=== PATIENT | female | born 1945 | race Caucasian/White ===

== ENCOUNTER 2017-05-22 03:45 | Outpatient (CLI) | payer OTHER ==
[~2017-05-22 03:45] MED LIST: ASPI-611 PO; CARV3.122 PO; INSU100V13 SQ; LANTUS SUBCUT; LEVO25TA7 PO; LOSA1TAB39 PO; METF500T7 PO; [UNRECOGNIZED DRUG - CODE] PO
== END 2017-05-22 23:59 | disposition home or self-care (01) ==
LOC: DIABETIC 03:45
PROVIDERS: ATTEND Nurse Practitioner
DX: E11.65 Type 2 diabetes mellitus with hyperglycemia (principal); I10 Essential (primary) hypertension; Z90.710 Acquired absence of both cervix and uterus
CPT/HCPCS: G0108

== ENCOUNTER 2017-08-21 03:55 | Outpatient (CLI) | payer OTHER | END 2017-08-21 23:59 | disposition home or self-care (01) | LOC: DIABETIC 03:55 | PROVIDERS: ATTEND Nurse Practitioner | DX: E11.65 Type 2 diabetes mellitus with hyperglycemia (principal); I10 Essential (primary) hypertension | CPT/HCPCS: G0108 ==

== ENCOUNTER 2018-03-05 02:09 | Outpatient (CLI) | payer OTHER | END 2018-03-05 23:59 | disposition home or self-care (01) | LOC: DIABETIC 02:09 | PROVIDERS: ATTEND Nurse Practitioner | DX: E11.65 Type 2 diabetes mellitus with hyperglycemia (principal); I10 Essential (primary) hypertension; Z79.82 Long term (current) use of aspirin; Z79.4 Long term (current) use of insulin; Z79.84 Long term (current) use of oral hypoglycemic drugs; Z79.899 Other long term (current) drug therapy; Z90.710 Acquired absence of both cervix and uterus | CPT/HCPCS: G0108 ==

== ENCOUNTER 2018-07-23 00:48 | Outpatient (CLI) | payer OTHER | END 2018-07-23 23:59 | disposition home or self-care (01) | LOC: DIABETIC 00:48 | PROVIDERS: ATTEND Nurse Practitioner | DX: E11.65 Type 2 diabetes mellitus with hyperglycemia (principal); I10 Essential (primary) hypertension; Z79.82 Long term (current) use of aspirin; Z79.4 Long term (current) use of insulin; Z79.84 Long term (current) use of oral hypoglycemic drugs; Z79.899 Other long term (current) drug therapy; Z90.710 Acquired absence of both cervix and uterus | CPT/HCPCS: G0108 ==

== ENCOUNTER 2018-10-29 02:10 | Outpatient (CLI) | payer OTHER | END 2018-10-29 23:59 | disposition home or self-care (01) | LOC: DIABETIC 02:10 | PROVIDERS: ATTEND Nurse Practitioner | DX: E11.9 Type 2 diabetes mellitus without complications (principal); Z71.3 Dietary counseling and surveillance | CPT/HCPCS: G0108 ==

== ENCOUNTER 2018-12-04 15:50 | Inpatient (IN) | payer MEDICARE, OTHER ==
[~2018-12-04] VITALS: Ht 160 cm; Wt 126.0 kg
[~2018-12-04 15:50] MED LIST changes: +METF500T20 PO; -METF500T7 PO
[2018-12-04] MEDS ORDERED: furosemide 10 MG/1 ML 10ml inj IV ONE (16:05)
[2018-12-04] MEDS ORDERED: ipratropium/albuterol 3ml nebule NEB ONE ×2 (16:10→20:00)
[2018-12-04] MEDS: nitroGLYCERIN-Tridil 50MG/D5W 250 ML IV SCH ×3 (16:15→17:00)
--- NOTE | 2018-12-04 16:21 | NUR ---
DANAE Norman at bedside, requests titration of NTG gtt to 75mcg/min
[2018-12-04 16:26] LABS: BASOPHILS # (AUTO) 0.1 X10'3 (0-0.2); BASOPHILS % (AUTO) 0.6 % (0-1); EOSINOPHILS # (AUTO) 0.3 X10'3 (0-0.9); EOSINOPHILS % (AUTO) 1.3 % (0-6); HEMATOCRIT 47.4 % (35.0-45.0); HEMOGLOBIN 15.8 g/dl (12.0-16.0); LYMPHOCYTES # (AUTO) 8.9 X10'3 (1.1-4.8); LYMPHOCYTES % (AUTO) 37.7 % (21-51); MEAN CORPUSCULAR HEMOGLOBIN 32.3 PG (27.0-31.0); MEAN CORPUSCULAR HGB CONC 33.2 g/dL (33.0-36.5); MEAN CORPUSCULAR VOLUME 97.1 FL (78-98); MEAN PLATELET VOLUME 8.5 FL (7.4-10.4); MONOCYTES # (AUTO) 1.8 X10'3 (0-0.9); MONOCYTES % (AUTO) 7.7 % (2-12); NEUTROPHILS # (AUTO) 12.5 X10'3 (1.8-7.7); NEUTROPHILS % (AUTO) 52.7 % (42-75); PLATELET COUNT 362 X10'3 (140-440); RED BLOOD COUNT 4.88 X10'6 (4.20-5.60); RED CELL DISTRIBUTION WIDTH 15.3 % (11.5-14.5); WHITE BLOOD COUNT 23.7 X10'3 (4.5-11.0)
--- NOTE | 2018-12-04 16:29 | NUR ---
DANAE Norman at bedside, requests titration of NTG gtt to 100mcg/min
[2018-12-04 16:31] LABS: ABG BASE EXCESS -4.5 mmol/L (-2.0-3.0); ABG HCO3 25.9 mmol/L (22.0-26.0); ABG OXYGEN SATURATION 99.5 % (95-98); ABG PCO2 (T) 71.4 mmHg (35.0-45.0); ABG PH (T) 7.177 (7.350-7.450); ABG PO2 (T) 466.2 mmHg (83-108); ALLEN'S TEST Positive; FCOHb 0.6 % (0.5-1.5); FMetHb 0.3 % (0.3-1.12); FO2Hb 98.6 % (94-100); MINUTE VOLUME 16 L/min; RESPIRATORY RATE 12 b/min; RESPIRATORY RATE (OBSERVED) 31 b/min; TIDAL VOLUME 480 mL
--- NOTE | 2018-12-04 17:00 | NUR ---
DANAE Norman at bedside, requests titration of NTG gtt to 75mcg/min Addendum: 12/04/18 at 1700 by [email or web address] EDMD Emerson at bedside, requests titration of NTG gtt down to 75mcg/min secondary to BP of 117/68
[2018-12-04] MEDS ORDERED: LEVO25TA7 PO (17:06)
[2018-12-04] MEDS ORDERED: SEMA0.25 SQ (17:09)
[2018-12-04 17:21] LABS: PARTIAL THROMBOPLASTIN TIME 26 SECONDS (22-32)
[2018-12-04 17:33] LABS: ALANINE AMINOTRANSFERASE 43 U/L (12-78); ALBUMIN/GLOBULIN RATIO 0.7 (1.1-1.5); ALKALINE PHOSPHATASE 87 IU/L (46-116); ANION GAP 13 (8-16); ASPARTATE AMINO TRANSFERASE 26 U/L (10-37); BILIRUBIN,TOTAL 0.3 MG/DL (0.1-1.0); BLOOD UREA NITROGEN 22 MG/DL (7-18); BUN/CREATININE RATIO 19.1 (6.6-38.0); CALCIUM 9.4 MG/DL (8.5-10.1); CHLORIDE 103 MMOL/L (99-107); CREATININE 1.15 MG/DL (0.40-0.90); GLUCOSE 256 MG/DL (70-104); POTASSIUM 3.8 MMOL/L (3.5-5.1); SODIUM 140 MMOL/L (135-145); TOTAL CARBON DIOXIDE 24.1 MMOL/L (24-32); TOTAL PROTEIN 7.2 G/DL (6.4-8.2); eGFR 46 ML/MIN
[2018-12-04 17:35] LABS: ABG BASE EXCESS -0.2 mmol/L (-2.0-3.0); ABG HCO3 25.1 mmol/L (22.0-26.0); ABG OXYGEN SATURATION 98.1 % (95-98); ABG PCO2 (T) 43.4 mmHg (35.0-45.0); ABG PO2 (T) 128.1 mmHg (83-108); ALLEN'S TEST Positive; FCOHb 0.5 % (0.5-1.5); FMetHb 0.2 % (0.3-1.12); FO2Hb 97.4 % (94-100); RESPIRATORY RATE 12 b/min; TOTAL HEMOGLOBIN 14.5 G/dl (12.0-16.0)
[2018-12-04] MEDS ORDERED: CefTRIAXone/D5W-Rocephin 1gm 50 ML IV ONE (17:45)
[2018-12-04] MEDS ORDERED: azithromycin/NS 500mg/250ml 250 ML IV ONE (17:45)
--- NOTE | 2018-12-04 17:58 | NUR ---
DR SIERRA INTO SEE PT AND REQUESTED NTG GTT BE DECREASED TO 25MCG. GTT DECREASED. HR 77 RR18 O2 07 BP 121/65 PT STATES BREATHING IMPROVED
[2018-12-04] MEDS ORDERED: iohexol 350MG/ML 100ml bottle IV ONE (19:28)
--- NOTE | 2018-12-04 19:34 | NUR ---
DOCTOR SIERRA REQUESTED THAT THE PATIENT BE TAKEN TO CT WITH A BI-PAP. SALAZAR ALEXANDER CONTACTED RT FOR TRANSPORT TO CT.
[2018-12-04] MEDS ORDERED: mag hydrox/Alum hydrox/simeth 30ml oral suspension PO PRN (20:35)
[2018-12-04] MEDS ORDERED: ondansetron/PF 4mg/2ml inj IV PRN (20:35)
[2018-12-04] MEDS ORDERED: magnesium hydroxide 30ml (MOM) UD suspension PO PRN (20:35)
[2018-12-04] MEDS ORDERED: acetaminophen 325mg tablet PO PRN (20:35)
[2018-12-04] MEDS ORDERED: MESSAGE TO PHARMACY PO ONE (20:40)
[2018-12-04] MEDS ORDERED: glucagon, human recombinant 1mg kit SUBCUT PRN (20:40)
[2018-12-04] MEDS ORDERED: dextrose ORAL solution 15 GM/59 ML bottle PO PRN ×2 (20:40)
[2018-12-04] MEDS ORDERED: dextrose 50%-water 50ml dispensing syringe IV PRN ×2 (20:40)
[2018-12-04] MEDS ORDERED: insulin glargine (Lantus) pen - multi-dose SQ SCH (21:00)
[2018-12-04] MEDS: pravastatin 40mg tablet PO SCH (21:00)
[2018-12-04 21:02] LABS: HEMOGLOBIN A1C 7.9 % (4.5-6.2)
[2018-12-04] MEDS: normal saline 1000ml 1,000 ML IV SCH (21:30)
[2018-12-04 21:35] VITALS: BP 136/73
[2018-12-04] MEDS ORDERED: insulin glargine (Lantus) pen - multi-dose SQ ONE (22:30)
[2018-12-04 23:00] VITALS: BP 128/71
[2018-12-05 02:00] VITALS: BP 125/68
[2018-12-05 04:47] LABS: BASOPHILS # (AUTO) 0.1 X10'3 (0-0.2); BASOPHILS % (AUTO) 0.5 % (0-1); EOSINOPHILS % (AUTO) 0.2 % (0-6); HEMATOCRIT 38.5 % (35.0-45.0); HEMOGLOBIN 12.7 g/dl (12.0-16.0); LYMPHOCYTES % (AUTO) 21.4 % (21-51); MEAN CORPUSCULAR HEMOGLOBIN 31.6 PG (27.0-31.0); MEAN CORPUSCULAR HGB CONC 32.9 g/dL (33.0-36.5); MEAN CORPUSCULAR VOLUME 96.3 FL (78-98); MEAN PLATELET VOLUME 8.6 FL (7.4-10.4); MONOCYTES # (AUTO) 1.1 X10'3 (0-0.9); MONOCYTES % (AUTO) 7.8 % (2-12); NEUTROPHILS # (AUTO) 9.7 X10'3 (1.8-7.7); NEUTROPHILS % (AUTO) 70.1 % (42-75); PLATELET COUNT 273 X10'3 (140-440); RED CELL DISTRIBUTION WIDTH 15.2 % (11.5-14.5); WHITE BLOOD COUNT 13.9 X10'3 (4.5-11.0)
[2018-12-05 04:55] LABS: ALANINE AMINOTRANSFERASE 38 U/L (12-78); ALBUMIN 2.8 G/DL (3.4-5.0); ALBUMIN/GLOBULIN RATIO 0.7 (1.1-1.5); ALKALINE PHOSPHATASE 78 IU/L (46-116); ANION GAP 8 (8-16); ASPARTATE AMINO TRANSFERASE 21 U/L (10-37); BILIRUBIN,TOTAL 0.4 MG/DL (0.1-1.0); BLOOD UREA NITROGEN 22 MG/DL (7-18); BUN/CREATININE RATIO 18.5 (6.6-38.0); CALCIUM 8.6 MG/DL (8.5-10.1); CHLORIDE 103 MMOL/L (99-107); CREATININE 1.19 MG/DL (0.40-0.90); GLUCOSE 291 MG/DL (70-104); POTASSIUM 4.3 MMOL/L (3.5-5.1); SODIUM 139 MMOL/L (135-145); TOTAL CARBON DIOXIDE 28.4 MMOL/L (24-32); TOTAL PROTEIN 6.6 G/DL (6.4-8.2); eGFR 45 ML/MIN
[2018-12-05 06:00] VITALS: BP 130/69
--- NOTE | 2018-12-05 06:05 | NUR ---
Orientee documentation: I have reviewed and agree with all interventions, assessments performed and documented by Sofia DAVIDSON.
--- NOTE | 2018-12-05 06:26 | NUR ---
Problems reprioritized. Patient report given, questions answered & plan of care reviewed with Ivelisse DAVIDSON.
[2018-12-05] MEDS: levoTHYROXINE 25mcg tablet PO SCH (07:00)
[2018-12-05] MEDS: insulin Lispro (HumaLOG) vial - multi-dose SQ SCH ×4 (08:17→22:23)
[2018-12-05] MEDS: HYDROchlorothiazide 25mg tablet PO SCH (08:29)
[2018-12-05] MEDS: aspirin 81mg tablet.DR PO SCH (08:29)
[2018-12-05] MEDS: azithromycin/NS 500mg/250ml 250 ML IV SCH (08:29)
[2018-12-05] MEDS: CefTRIAXone/D5W-Rocephin 1gm 50 ML IV SCH (08:29)
[2018-12-05] MEDS: heparin, porcine 5000 units/ml vial SQ SCH ×2 (08:30→20:24)
[2018-12-05] MEDS: carVEDilol 3.125mg tablet PO SCH ×2 (10:30→20:23)
[2018-12-05] MEDS: isosorbide mononitrate 30mg tab.SR.24H PO SCH (10:30)
[2018-12-05 11:00] VITALS: BP 140/58
[2018-12-05 15:00] VITALS: BP 114/42
[2018-12-05] MEDS: normal saline 1000ml 1,000 ML IV SCH (15:40)
--- NOTE | 2018-12-05 16:14 | NUR ---
DM consult, A1c 7.9, patient and family seen at bedside and given written DM education handout with verbal review and referral to Saturday outpatient DM education class. Pt reports she attends outpatient CDE class every three months, checks BG 2-4 times per day and takes meds per rx, no questions at this time from pt. Pt expressed excitement about working towards lowering A1c to 7.0 Addendum: 12/05/18 at [address] Amended: Links added.
[2018-12-05 18:00] VITALS: BP 135/67
--- NOTE | 2018-12-05 18:13 | NUR ---
Problems reprioritized. Patient report given, questions answered & plan of care reviewed with shan DAVIDSON.
--- NOTE | 2018-12-05 18:32 | NUR ---
Patient in room PCU 3028. I have received report from Ivelisse DAVIDSON and had the opportunity to ask questions and assume patient care.
[2018-12-05] MEDS: lactobacillus rhamnosus 10,000 MMU CELLS/CAPSULE PO SCH (20:23)
[2018-12-05] MEDS: losartan 50mg tablet PO SCH (20:24)
[2018-12-05] MEDS: pravastatin 40mg tablet PO SCH (20:25)
[2018-12-05 22:00] VITALS: BP 134/57
[2018-12-05] MEDS: insulin glargine (Lantus) pen - multi-dose SQ SCH (22:07)
[2018-12-05] MEDS ORDERED: acetaminophen 325mg tablet PO PRN (22:25)
[2018-12-06] MEDS: normal saline 1000ml 1,000 ML IV SCH (01:42)
[2018-12-06 02:00] VITALS: BP 126/51
[2018-12-06 05:23] LABS: BASOPHILS # (AUTO) 0.1 X10'3 (0-0.2); BASOPHILS % (AUTO) 0.6 % (0-1); EOSINOPHILS # (AUTO) 0.2 X10'3 (0-0.9); EOSINOPHILS % (AUTO) 1.5 % (0-6); HEMATOCRIT 33.7 % (35.0-45.0); HEMOGLOBIN 11.2 g/dl (12.0-16.0); LYMPHOCYTES # (AUTO) 3.4 X10'3 (1.1-4.8); MEAN CORPUSCULAR HEMOGLOBIN 32.3 PG (27.0-31.0); MEAN CORPUSCULAR HGB CONC 33.3 g/dL (33.0-36.5); MEAN CORPUSCULAR VOLUME 97.1 FL (78-98); MEAN PLATELET VOLUME 8.7 FL (7.4-10.4); MONOCYTES % (AUTO) 8.3 % (2-12); NEUTROPHILS # (AUTO) 7.8 X10'3 (1.8-7.7); NEUTROPHILS % (AUTO) 62.6 % (42-75); PLATELET COUNT 234 X10'3 (140-440); RED BLOOD COUNT 3.47 X10'6 (4.20-5.60); RED CELL DISTRIBUTION WIDTH 14.9 % (11.5-14.5); WHITE BLOOD COUNT 12.4 X10'3 (4.5-11.0)
[2018-12-06 05:51] LABS: ALANINE AMINOTRANSFERASE 32 U/L (12-78); ALBUMIN 2.6 G/DL (3.4-5.0); ALBUMIN/GLOBULIN RATIO 0.7 (1.1-1.5); ALKALINE PHOSPHATASE 67 IU/L (46-116); ANION GAP 7 (8-16); ASPARTATE AMINO TRANSFERASE 12 U/L (10-37); BILIRUBIN,TOTAL 0.3 MG/DL (0.1-1.0); BLOOD UREA NITROGEN 24 MG/DL (7-18); BUN/CREATININE RATIO 21.4 (6.6-38.0); CALCIUM 8.4 MG/DL (8.5-10.1); CHLORIDE 105 MMOL/L (99-107); CREATININE 1.12 MG/DL (0.40-0.90); GLUCOSE 194 MG/DL (70-104); POTASSIUM 3.6 MMOL/L (3.5-5.1); SODIUM 141 MMOL/L (135-145); TOTAL CARBON DIOXIDE 28.7 MMOL/L (24-32); TOTAL PROTEIN 6.1 G/DL (6.4-8.2); eGFR 48 ML/MIN
--- NOTE | 2018-12-06 05:53 | NUR ---
Orientee documentation: I have reviewed and agree with all interventions, assessments performed and documented by Sofia DAVIDSON.
[2018-12-06 06:00] VITALS: BP 103/37
--- NOTE | 2018-12-06 06:12 | NUR ---
Problems reprioritized. Patient report given, questions answered & plan of care reviewed with Froilan DAVIDSON.
[2018-12-06] MEDS: levoTHYROXINE 25mcg tablet PO SCH (07:29)
[2018-12-06] MEDS: CefTRIAXone/D5W-Rocephin 1gm 50 ML IV SCH (07:35)
[2018-12-06] MEDS: azithromycin/NS 500mg/250ml 250 ML IV SCH (07:35)
[2018-12-06] MEDS: furosemide 20 MG/2 ML vial IV SCH ×2 (08:45→20:00)
[2018-12-06] MEDS: isosorbide mononitrate 30mg tab.SR.24H PO SCH (08:45)
[2018-12-06] MEDS: heparin, porcine 5000 units/ml vial SQ SCH ×2 (08:45→20:00)
[2018-12-06] MEDS: lactobacillus rhamnosus 10,000 MMU CELLS/CAPSULE PO SCH ×2 (08:45→20:00)
[2018-12-06] MEDS: carVEDilol 3.125mg tablet PO SCH ×2 (08:45→20:00)
[2018-12-06] MEDS: aspirin 81mg tablet.DR PO SCH (08:45)
[2018-12-06] MEDS: HYDROchlorothiazide 25mg tablet PO SCH (08:45)
[2018-12-06] MEDS: insulin Lispro (HumaLOG) vial - multi-dose SQ SCH ×2 (08:48→13:37)
[2018-12-06 11:00] VITALS: BP 121/51
[2018-12-06 15:00] VITALS: BP 129/49
[2018-12-06 18:00] VITALS: BP 143/67
--- NOTE | 2018-12-06 18:40 | NUR ---
Problems reprioritized. Patient report given, questions answered & plan of care reviewed with TR DAVIDSON.
[2018-12-06] MEDS ORDERED: atorvastatin 10mg tablet PO SCH (21:00)
[2018-12-06] MEDS: losartan 50mg tablet PO SCH (21:06)
[2018-12-06] MEDS: insulin glargine (Lantus) pen - multi-dose SQ SCH (21:07)
--- NOTE | 2018-12-06 21:56 | NUR ---
Paged Dr. Fried for new orders. Page Sent promotional table spacer PAGER ID: [phone] MESSAGE: Pt: Judy Claudia, Rm [id number], lost IV access, hard stick- can we switch Lasix to PO, & dc IVF since she's taking PO fluids? Please call Pauline at [phone]
[2018-12-06 22:00] VITALS: BP 106/42
[2018-12-06] MEDS ORDERED: furosemide 20MG tablet PO ONE (22:10)
--- NOTE | 2018-12-06 22:15 | NUR ---
Lost IV before Lasix was able to be given, obtained 1x dose of PO Lasix from Dr. Fried while until another IV started. IV Fluids were d/c'd since pt is taking PO fluids with no problem. PRN Simethicone order entered for pt c/o of gas.
[2018-12-07 02:00] VITALS: BP 122/53
[2018-12-07 06:00] VITALS: BP 105/47
[2018-12-07 06:01] LABS: BASOPHILS % (AUTO) 0.4 % (0-1); EOSINOPHILS # (AUTO) 0.1 X10'3 (0-0.9); EOSINOPHILS % (AUTO) 1.1 % (0-6); HEMATOCRIT 34.9 % (35.0-45.0); HEMOGLOBIN 11.6 g/dl (12.0-16.0); LYMPHOCYTES # (AUTO) 3.6 X10'3 (1.1-4.8); LYMPHOCYTES % (AUTO) 31.2 % (21-51); MEAN CORPUSCULAR HEMOGLOBIN 32.1 PG (27.0-31.0); MEAN CORPUSCULAR HGB CONC 33.2 g/dL (33.0-36.5); MEAN CORPUSCULAR VOLUME 96.8 FL (78-98); MEAN PLATELET VOLUME 8.6 FL (7.4-10.4); MONOCYTES # (AUTO) 0.8 X10'3 (0-0.9); MONOCYTES % (AUTO) 6.9 % (2-12); NEUTROPHILS # (AUTO) 6.9 X10'3 (1.8-7.7); NEUTROPHILS % (AUTO) 60.4 % (42-75); PLATELET COUNT 254 X10'3 (140-440); RED CELL DISTRIBUTION WIDTH 15.3 % (11.5-14.5); WHITE BLOOD COUNT 11.5 X10'3 (4.5-11.0)
[2018-12-07 06:30] LABS: ALANINE AMINOTRANSFERASE 35 U/L (12-78); ALBUMIN 2.8 G/DL (3.4-5.0); ALBUMIN/GLOBULIN RATIO 0.7 (1.1-1.5); ALKALINE PHOSPHATASE 74 IU/L (46-116); ANION GAP 10 (8-16); ASPARTATE AMINO TRANSFERASE 14 U/L (10-37); BILIRUBIN,TOTAL 0.3 MG/DL (0.1-1.0); BLOOD UREA NITROGEN 24 MG/DL (7-18); BUN/CREATININE RATIO 20.9 (6.6-38.0); CALCIUM 8.7 MG/DL (8.5-10.1); CHLORIDE 103 MMOL/L (99-107); CREATININE 1.15 MG/DL (0.40-0.90); GLUCOSE 164 MG/DL (70-104); POTASSIUM 3.5 MMOL/L (3.5-5.1); SODIUM 142 MMOL/L (135-145); TOTAL PROTEIN 6.6 G/DL (6.4-8.2); eGFR 46 ML/MIN
--- NOTE | 2018-12-07 06:34 | NUR ---
Patient in room PCU 3028. I have received report from Pauline and had the opportunity to ask questions and assume patient care.
[2018-12-07] MEDS: levoTHYROXINE 25mcg tablet PO SCH (07:31)
[2018-12-07] MEDS: HYDROchlorothiazide 25mg tablet PO SCH (07:31)
[2018-12-07] MEDS: aspirin 81mg tablet.DR PO SCH (07:31)
[2018-12-07] MEDS: carVEDilol 3.125mg tablet PO SCH (07:35)
[2018-12-07] MEDS: lactobacillus rhamnosus 10,000 MMU CELLS/CAPSULE PO SCH (07:35)
[2018-12-07] MEDS: isosorbide mononitrate 30mg tab.SR.24H PO SCH (07:35)
[2018-12-07] MEDS: furosemide 20 MG/2 ML vial IV SCH (07:36)
[2018-12-07] MEDS: heparin, porcine 5000 units/ml vial SQ SCH (07:37)
[2018-12-07] MEDS: CefTRIAXone/D5W-Rocephin 1gm 50 ML IV SCH (07:37)
[2018-12-07] MEDS ORDERED: simethicone 80mg chew tab PO SCH (08:00)
[2018-12-07] MEDS: azithromycin/NS 500mg/250ml 250 ML IV SCH (08:00)
[2018-12-07] MEDS ORDERED: FURO20TA4 PO (08:22)
[2018-12-07] MEDS ORDERED: COR3.125T PO (08:22)
[2018-12-07] MEDS: insulin Lispro (HumaLOG) vial - multi-dose SQ SCH (08:52)
--- NOTE | 2018-12-07 10:19 | NUR ---
Patient has an order to discharge home. All discharge instructions reviewed with patient and she verbalized understanding. Patient stated she has a follow up appointment tomorrow with Dr. Ku. Discharge teaching regarding new medications provided. PIV to LFA DC'd with tip intact. Tele monitored removed.Patient left in stable condition.
== END 2018-12-07 09:50 | disposition home or self-care (01) | DRG 871 ==
LOC: ER 15:50 → PCU 3S 22:01
PROVIDERS: ADMIT Internal Medicine; ATTEND Internal Medicine
PROC: B32T1ZZ Computerized Tomography (CT Scan) of Left Pulmonary Artery using Low Osmolar Contrast (ICD-10-PCS; principal; 2018-12-04)
PROC: B3201ZZ Computerized Tomography (CT Scan) of Thoracic Aorta using Low Osmolar Contrast (ICD-10-PCS; 2018-12-04)
PROC: B32S1ZZ Computerized Tomography (CT Scan) of Right Pulmonary Artery using Low Osmolar Contrast (ICD-10-PCS; 2018-12-04)
PROC: 5A09357 Assistance with Respiratory Ventilation, Less than 24 Consecutive Hours, Continuous Positive Airway Pressure (ICD-10-PCS; 2018-12-04)
PROC: 5A09357 Assistance with Respiratory Ventilation, Less than 24 Consecutive Hours, Continuous Positive Airway Pressure (ICD-10-PCS; 2018-12-05)
PROC: 5A09357 Assistance with Respiratory Ventilation, Less than 24 Consecutive Hours, Continuous Positive Airway Pressure (ICD-10-PCS; 2018-12-07)
DX: A41.9 Sepsis, unspecified organism (principal); J18.9 Pneumonia, unspecified organism; J96.01 Acute respiratory failure with hypoxia; I50.21 Acute systolic (congestive) heart failure; I21.4 Non-ST elevation (NSTEMI) myocardial infarction; E87.2 Acidosis; I13.0 Hypertensive heart and chronic kidney disease with heart failure and stage 1 through stage 4 chronic kidney disease, or unspecified chronic kidney disease; I16.1 Hypertensive emergency; Z68.42 Body mass index [BMI] 45.0-49.9, adult; J91.8 Pleural effusion in other conditions classified elsewhere; E66.01 Morbid (severe) obesity due to excess calories; E03.9 Hypothyroidism, unspecified; E11.22 Type 2 diabetes mellitus with diabetic chronic kidney disease; E78.5 Hyperlipidemia, unspecified; G47.33 Obstructive sleep apnea (adult) (pediatric); I27.81 Cor pulmonale (chronic); F41.1 Generalized anxiety disorder; G89.29 Other chronic pain; I25.10 Atherosclerotic heart disease of native coronary artery without angina pectoris; I44.7 Left bundle-branch block, unspecified; N18.3 Chronic kidney disease, stage 3 (moderate); Z79.4 Long term (current) use of insulin; Z79.899 Other long term (current) drug therapy; Z79.82 Long term (current) use of aspirin; Z79.890 Hormone replacement therapy; Z90.711 Acquired absence of uterus with remaining cervical stump; Z90.49 Acquired absence of other specified parts of digestive tract; Z79.84 Long term (current) use of oral hypoglycemic drugs
CPT/HCPCS: 36415; 36600; 71045; 71275; 80053; 82803; 82948; 83036; 83605; 83880; 84145; 84443; 84484; 85018; 85025; 85610; 85730; 87040; 87081; 93005; 93306; 94640; 94660; 94760; 96361; 96365; 96366; 96367; 96368; 96375; 99285; G0378; J0456; J0696; J1644; J1815; J1940; J2405; J3490; J7030; Q9967

== ENCOUNTER 2019-02-03 04:18 | Outpatient (CLI) | payer OTHER ==
[~2019-02-03 04:18] MED LIST changes: -CARV3.122 PO; +COR3.125T PO; +FURO20TA4 PO; +SEMA0.25 SQ
== END 2019-02-03 23:59 | disposition home or self-care (01) ==
LOC: DIABETIC 04:18
PROVIDERS: ATTEND Nurse Practitioner
DX: E11.69 Type 2 diabetes mellitus with other specified complication (principal)
CPT/HCPCS: G0108

== ENCOUNTER 2019-02-05 16:24 | Emergency (ER) | payer MEDICARE, OTHER ==
[~2019-02-05] VITALS: Ht 157.5 cm; Wt 122.3 kg
[2019-02-05 17:01] LABS: BASOPHILS # (AUTO) 0.1 X10'3 (0-0.2); BASOPHILS % (AUTO) 0.8 % (0-1); EOSINOPHILS # (AUTO) 0.1 X10'3 (0-0.9); EOSINOPHILS % (AUTO) 0.7 % (0-6); HEMATOCRIT 39.4 % (35.0-45.0); HEMOGLOBIN 13.4 g/dl (12.0-16.0); LYMPHOCYTES # (AUTO) 4.2 X10'3 (1.1-4.8); LYMPHOCYTES % (AUTO) 29.4 % (21-51); MEAN CORPUSCULAR HEMOGLOBIN 32.5 PG (27.0-31.0); MEAN CORPUSCULAR HGB CONC 34.1 g/dL (33.0-36.5); MEAN CORPUSCULAR VOLUME 95.2 FL (78-98); MEAN PLATELET VOLUME 8.1 FL (7.4-10.4); MONOCYTES # (AUTO) 1.1 X10'3 (0-0.9); MONOCYTES % (AUTO) 7.9 % (2-12); NEUTROPHILS # (AUTO) 8.8 X10'3 (1.8-7.7); NEUTROPHILS % (AUTO) 61.2 % (42-75); PLATELET COUNT 302 X10'3 (140-440); RED BLOOD COUNT 4.14 X10'6 (4.20-5.60); RED CELL DISTRIBUTION WIDTH 14.8 % (11.5-14.5); WHITE BLOOD COUNT 14.3 X10'3 (4.5-11.0)
[2019-02-05 17:10] LABS: PARTIAL THROMBOPLASTIN TIME 26 SECONDS (22-32)
[2019-02-05 17:13] LABS: ALANINE AMINOTRANSFERASE 22 U/L (12-78); ALBUMIN 2.9 G/DL (3.4-5.0); ALBUMIN/GLOBULIN RATIO 0.6 (1.1-1.5); ALKALINE PHOSPHATASE 84 IU/L (46-116); ANION GAP 7 (8-16); ASPARTATE AMINO TRANSFERASE 10 U/L (10-37); BILIRUBIN,TOTAL 0.3 MG/DL (0.1-1.0); BLOOD UREA NITROGEN 26 MG/DL (7-18); CALCIUM 9.7 MG/DL (8.5-10.1); CHLORIDE 102 MMOL/L (99-107); CREATININE 1.24 MG/DL (0.40-0.90); GLUCOSE 117 MG/DL (70-104); POTASSIUM 3.5 MMOL/L (3.5-5.1); SODIUM 142 MMOL/L (135-145); TOTAL CARBON DIOXIDE 32.9 MMOL/L (24-32); TOTAL PROTEIN 7.5 G/DL (6.4-8.2); eGFR 43 ML/MIN
[2019-02-05 19:16] LABS: D-DIMER 0.89 MG/L FEU (0-0.50)
[2019-02-05] MEDS ORDERED: acetaminophen 325mg tablet PO ONE (19:30)
[2019-02-05] MEDS ORDERED: iohexol 350MG/ML 100ml bottle IV ONE (19:33)
[2019-02-05 20:24] LABS: CLARITY,URINE CLEAR (Clear); COLOR,URINE YELLOW (Yellow); GLUCOSE, URINE NEGATIVE (Neg); KETONES,URINE NEGATIVE (Neg); LEUKOCYTE ESTERASE ,URINE NEGATIVE (Neg); NITRITES, URINE NEGATIVE (Neg); OCCULT BLOOD,URINE LARGE (Neg); PH,URINE 5.5 (4.8-8.0); PROTEIN,URINE NEGATIVE (Neg); UA COLLECTION TYPE CLN CATCH MIDSTREAM; UROBILINOGEN,URINE 0.2 E.U/dL (0.2-1.0)
[2019-02-05 20:32] LABS: BACTERIA,URINE FEW /HPF (Neg); MUCUS STRANDS NONE SEEN /LPF (Neg); SQUAMOUS EPITHELIAL CELL,UR FEW /LPF (FEW); WBC,URINE NONE SEEN /HPF (0-4)
--- NOTE | 2019-02-05 20:45 | NUR ---
THREE UNSUCCESSFUL ATTEMPTS AT IV START, PT REFUSED FURTHER IV ATTEMPTS. MD NOTIFIED, SEE NEW ORDERS
[2019-02-05] MEDS ORDERED: LORazepam 2 mg/ml vial IM ONE (20:50)
[2019-02-05] MEDS ORDERED: HYDR-3965 PO (21:10)
[2019-02-05 21:21] VITALS: BP 157/98
== END 2019-02-05 21:24 | disposition home or self-care (01) ==
LOC: ER 16:25
DX: M25.571 Pain in right ankle and joints of right foot (principal); M79.671 Pain in right foot; I10 Essential (primary) hypertension; G47.30 Sleep apnea, unspecified; E11.9 Type 2 diabetes mellitus without complications; I27.20 Pulmonary hypertension, unspecified; Z90.49 Acquired absence of other specified parts of digestive tract; Z90.710 Acquired absence of both cervix and uterus; Z79.82 Long term (current) use of aspirin; Z79.4 Long term (current) use of insulin; Z79.899 Other long term (current) drug therapy
CPT/HCPCS: 29540; 36415; 71045; 73610; 80053; 81001; 83880; 84484; 85025; 85379; 85610; 85730; 96372; 99284; J2060; Q9967; 93005

== ENCOUNTER 2019-05-06 02:33 | Outpatient (CLI) | payer OTHER | END 2019-05-06 23:59 | disposition home or self-care (01) | LOC: DIABETIC 02:33 | PROVIDERS: ATTEND Nurse Practitioner | DX: E11.65 Type 2 diabetes mellitus with hyperglycemia (principal) | CPT/HCPCS: G0108 ==

== ENCOUNTER 2019-06-09 00:31 | Outpatient (CLI) | payer MEDICARE | END 2019-06-09 23:59 | disposition home or self-care (01) | LOC: DIABETIC 00:31 | PROVIDERS: ATTEND Nurse Practitioner | DX: E11.65 Type 2 diabetes mellitus with hyperglycemia (principal) | CPT/HCPCS: G0108 ==

== ENCOUNTER 2020-05-12 16:29 | Emergency (ER) | payer MEDICARE ==
[~2020-05-12] VITALS: Ht 157.5 cm; Wt 116.1 kg
[~2020-05-12 16:29] MED LIST changes: +METF-900 PO; -METF500T20 PO
[2020-05-12 17:25] LABS: BASOPHILS # (AUTO) 0.1 X10'3 (0-0.2); BASOPHILS % (AUTO) 0.9 % (0-1); EOSINOPHILS # (AUTO) 0.1 X10'3 (0-0.9); EOSINOPHILS % (AUTO) 1.1 % (0-6); HEMOGLOBIN 13.2 g/dl (12.0-16.0); LYMPHOCYTES # (AUTO) 4.2 X10'3 (1.1-4.8); LYMPHOCYTES % (AUTO) 31.9 % (21-51); MEAN CORPUSCULAR HEMOGLOBIN 31.7 PG (27.0-31.0); MEAN CORPUSCULAR HGB CONC 33.1 g/dL (33.0-36.5); MEAN CORPUSCULAR VOLUME 95.7 FL (78-98); MEAN PLATELET VOLUME 8.2 FL (7.4-10.4); MONOCYTES # (AUTO) 1.1 X10'3 (0-0.9); MONOCYTES % (AUTO) 8.2 % (2-12); NEUTROPHILS # (AUTO) 7.6 X10'3 (1.8-7.7); NEUTROPHILS % (AUTO) 57.9 % (42-75); PLATELET COUNT 321 X10'3 (140-440); RED BLOOD COUNT 4.18 X10'6 (4.20-5.60); WHITE BLOOD COUNT 13.1 X10'3 (4.5-11.0)
[2020-05-12 17:31] LABS: ALANINE AMINOTRANSFERASE 22 U/L (12-78); ALBUMIN 3.2 G/DL (3.4-5.0); ALBUMIN/GLOBULIN RATIO 0.7 (1.1-1.5); ALKALINE PHOSPHATASE 98 IU/L (46-116); ANION GAP 7 (8-16); ASPARTATE AMINO TRANSFERASE 13 U/L (10-37); BILIRUBIN,TOTAL 0.2 MG/DL (0.1-1.0); BLOOD UREA NITROGEN 20 MG/DL (7-18); BUN/CREATININE RATIO 21.7 (6.6-38.0); CHLORIDE 103 MMOL/L (99-107); CREATININE 0.92 MG/DL (0.40-0.90); GLUCOSE 173 MG/DL (70-104); POTASSIUM 3.9 MMOL/L (3.5-5.1); SODIUM 140 MMOL/L (135-145); TOTAL CARBON DIOXIDE 29.7 MMOL/L (24-32); TOTAL PROTEIN 7.6 G/DL (6.4-8.2); eGFR 60 ML/MIN
[2020-05-12 18:18] VITALS: BP 152/66
== END 2020-05-12 18:23 | disposition home or self-care (01) ==
LOC: ER 16:30
DX: R07.89 Other chest pain (principal); R06.02 Shortness of breath; I10 Essential (primary) hypertension; E11.9 Type 2 diabetes mellitus without complications; Z90.49 Acquired absence of other specified parts of digestive tract; Z90.710 Acquired absence of both cervix and uterus; Z79.82 Long term (current) use of aspirin; Z79.4 Long term (current) use of insulin; Z79.899 Other long term (current) drug therapy
CPT/HCPCS: 36415; 71045; 80053; 83880; 84484; 85025; 93005; 99285